=== PATIENT | female | born 1960 | race Caucasian/White ===

== ENCOUNTER 2020-01-10 11:22 | Observation (INO) | payer BC, SELFPAY ==
[2020-01-10] VITALS (20 sets, daily range): BP systolic 103–126; BP diastolic 34–58; PULSE 59–674; RESP 14–20; TEMP 36.3–37.1; O2SAT 96–100; BMI 31.6
[2020-01-10 11:50] LABS: Basophils Absolute Auto 0.1 K/mm3 (0.0-0.1); Eosinophils Absolute Auto 0.5 K/mm3 (0-0.3); Eosinophils Percent Auto 4.6 % (0-4.4); Immature Granulocyte Absolute 0.04 K/mm3 (0.00-0.031); Immature Granulocyte Percent A 0.4 % (0-0.5); Immature Platelet Fraction Pct 4.3 % (0.9-11.2); Lymphocytes Absolute Auto 1.07 K/mm3 (0.9-3.2); Mean Corpuscular HGB Conc 24.9 g/dl (32-36); Mean Corpuscular Hemoglobin 15.3 pg (26-34); Mean Corpuscular Volume 61.7 fl (80-100); Monocytes Absolute Auto 0.8 K/mm3 (0.1-0.6); Monocytes Percent Auto 7.9 % (2.6-8.5); Neutrophils Absolute Auto 7.3 K/mm3 (1.3-6.7); Neutrophils Percent Auto 75.1 % (45.5-73.1); Platelet Count Result 202 k/mm3 (150-375); Red Blood Count 3.26 M/mm3 (4.2-5.4); Red Cell Distribution Width 20.3 % (11.5-14.5); White Blood Count 9.8 K/mm3 (4.5-10.0)
--- NOTE | 2020-01-10 11:53 | ED.RECABL ---
HPI - Recheck/Abnormal Lab/Rx General Chief Complaint: Recheck/Abnormal Lab/Rx Stated Complaint: they sent me here for a blood transfusion Time Seen by Provider: 01/10/20 11:28 Source: patient Mode of arrival: ambulatory Limitations: no limitations History of Present Illness HPI narrative: Patient presents with chief complaint of being sent to the emergency department for blood transfusion by her primary care Dr. Dela Cruz. Patient reports approximately 7 months ago she was hospitalized for anemia, had upper and lower scopes performed and a source of bleeding was not found. Patient states she was told that she has cirrhosis of the liver and so she has been referred to a hand candle molder at [facility]. Patient denies feeling weak, dizzy, dyspneic, febrile, lethargic or having any other symptoms. Patient states that she had lab work done at [facility] yesterday for her upcoming hematology appointment and was called today and told to come directly to the emergency department for blood transfusion. Patient reports her past medical history includes cirrhosis of liver, hypertension, diabetes, pruritus which caused wounds on her legs. Related Data Home Medications Medication Instructions Recorded Confirmed albuterol sulfate [ProAir HFA] INHALATION 01/10/20 budesonide-formoterol [Symbicort] INHALATION 01/10/20 furosemide 01/10/20 gabapentin 01/10/20 insulin NPH and regular human SUBCUT 01/10/20 [Humulin 70/30 U-100 Insulin] insulin glargine [Lantus Solostar unit SUBCUT 01/10/20 U-100 Insulin] metformin mg 01/10/20 sertraline mg 01/10/20 Allergies Allergy/AdvReac Type Severity Reaction Status Date / Time No Known Allergies Allergy Unknown Unverified 06/15/19 10:02 Review of Systems Review of Systems: Narrative: CONSTITUTIONAL: Denies fever, chills, or sweats. EYES: Denies visual changes, redness, or discharge. ENT: Denies rhinorrhea, congestion, sore throat, or otalgia. CARDIOVASCULAR: Denies chest pain, palpitations, or edema. RESPIRATORY: Denies cough or dyspnea. GASTROINTESTINAL: Denies abdominal pain, nausea, vomiting, or diarrhea. GENITOURINARY: Denies dysuria or hematuria. SKIN: Denies rash or itching. MUSCULOSKELETAL: Denies back pain, joint pain, or myalgia. NEUROLOGIC: Denies headache, numbness, dizziness, or weakness. PSYCHIATRIC: Denies anxiety or depression. FORMERLY [facility] Past Medical History Medical History (Updated 01/10/20 @ 13:04 by Adi Hughes PA-C) Cirrhosis of liver Diabetes Hypertension Family History Family History (Updated 02/18/12 @ 16:41 by DOCTOR UNKNOWN) Other Diabetes mellitus Family history of cardiovascular disease Social History Social History Smoking status: Never smoker Alcohol intake: never Exam Narrative: Exam Narrative: GENERAL: Well-appearing, well-nourished, and in no acute distress. Smiling and talking with staff. HEAD: Normocephalic, atraumatic. EYES: PERRLA and EOMI. ENT: Nares clear, no rhinorrhea or epistaxis. Mucous membranes moist. Oropharynx without tonsillar hypertrophy exudate or other lesions. Bilateral TMs pearly min nonbulging CHEST: Clear to auscultation. No respiratory distress. No wheezes rales or rhonchi HEART: Regular rate and rhythm. murmur heard. ABDOMEN: Soft, nontender, nondistended, normal active bowel sounds. EXTREMITIES: Normal range of motion. Excoriations and wounds in various stages of healing to lower legs. No purulent drainage noted. SKIN: Warm, dry, no rash. NEURO: No focal deficits. Alert and oriented x3. PSYCH: Normal mood and affect. Course Vital Signs Vital signs: Vital Signs Temperature 98.6 F 01/10/20 11:33 Pulse Rate 72 01/10/20 11:33 Respiratory Rate 18 01/10/20 11:33 Blood Pressure 126/51 L 01/10/20 11:33 Pulse Oximetry 100 01/10/20 11:33 Temperature 98.6 F 01/10/20 11:33 Pulse Rate 70 01/10/20 12:07 Respiratory Rate 18 01/10/20 11:33 Blood Pressure 110/48 L 01/10/20 12:07 Puls
[2020-01-10 11:59] LABS: Hematocrit 20.1 % (37.0-47.0)
[2020-01-10 12:00] LABS: Platelet Estimate Adequate (Adequate)
--- NOTE | 2020-01-10 12:00 | ECG_ITS ---
Measurements Intervals [place] Rate: 72 P: 19 AR: 148 QRS: 12 QRSD: 137 T: 37 QT: 437 QTc: 480 Interpretive Statements SINUS RHYTHM WITH MARKED SINUS ARRHYTHMIA RIGHT BUNDLE BRANCH BLOCK BASELINE ARTIFACT- V1 ABNORMAL ECG Electronically Signed On 01-10-2020 12:07:51 CDT by Sang Houser D.O.
[2020-01-10 12:01] LABS: Hypochromasia 2+ (NORMAL); Microcytosis 1+ (NORMAL)
[2020-01-10 12:05] LABS: Alanine Aminotransferase 12 U/L (4-35); Alkaline Phosphatase 140 U/L (38-126); Aspartate Amino Transferase 27 U/L (14-36); Bilirubin,Total 0.8 mg/dL (0.2-1.3); Blood Urea Nitrogen 55 mg/dL (7-17); Calcium 8.8 mg/dL (8.4-10.2); Carbon Dioxide 21 mmol/L (22-30); Chloride 101 mmol/L (98-107); Estimated CRCL calculation 36 ml/min; Estimated Glomerular Filt Rate 35; Glucose 421 mg/dL (65-105); Potassium 5.9 mmol/L (3.4-5.0); Sodium 135 mmol/L (137-145)
[2020-01-10] MEDS: TUBING, BLOOD SET 1 EACH XX (13:11)
[2020-01-10] MEDS: SODIUM CHLORIDE 0.9% IV 250 ML 30 ML IV CONT (13:11)
[2020-01-10 14:38] LABS: Glucose Point of Care 426 (65-105)
--- NOTE | 2020-01-10 16:45 | PM.IMHP ---
H&P: HPI History of Present Illness Chief complaint: ?I need a blood transfusion.? Narrative: Samira Romo is a 59-year-old female with history of anemia requiring blood transfusion, insulin-dependent diabetes, peripheral neuropathy, hypertension, and cirrhosis who presented to the emergency department earlier this morning from home reporting that ?I need a blood transfusion.? The patient is known to the hospitalist service and myself as I admitted her to the hospital June 15, 2019 with profound anemia. Upper and lower endoscopies per Dr. Lehman showed no obvious abnormalities and a few small diverticuli and uncomplicated internal hemorrhoids, respectively. She received blood transfusions at that time, and was discharged on oral iron. She was told she could quit taking her iron not long thereafter, reportedly because her levels were within normal limits. During that admission, she was also found to have cirrhosis and has an upcoming appointment with a production operations manager in [place]. Yesterday, she had lab work done in anticipation of that appointment and this morning she received a phone call directing her to the emergency department as she needed a blood transfusion. Hemoglobin and hematocrit were 5.0 in 20.1 respectively. She has since received 2 units of packed red blood cells with a hemoglobin and hematocrit now of 7.1 and 25.7. The patient was surprised that she was not anemic, and says that she has not really had symptoms of such. She admits that she is quite sedentary, but goes on to say that is likely due to stress altering in place. She denies shortness of breath, palpitations, lightheadedness/dizziness, epistaxis, hematemesis, hemoptysis, melena, hematochezia, and hematuria. Review of Systems Review of Systems: Narrative: Twelve systems were reviewed with pertinent positives and negatives as per HPI. No fever, chills, or sweats. She denies headache. No recent cold or flu symptoms. No cough or shortness of breath. She denies sick contacts. She admits that her glucose is poorly controlled, with Accu-Cheks typically ranging between 350 and over 500. She cannot afford her insulin and has been purchasing [id number] 70/30 from [employer] and has been taking 80 units b.i.d.. She denies blurry vision. She tells me that she is always thirsty and that is unchanged. Patient is noted to have open wounds and excoriations on her upper back as well as her extremities, she tells me that she suffers from significant pruritus which she blames on her hyperglycemia. Except as documented, all other systems were reviewed and are negative. FOR[facility]LY [facility] Past Medical History Medical History (Updated 01/10/20 @ 20:53 by Ledy Martin PA-C) Chronic anemia With history of blood transfusion. Cirrhosis of liver Diabetic peripheral neuropathy Diastolic dysfunction Echocardiogram in May 2019 showed preserved left ventricular systolic function with ejection fraction of 74% and grade 2 diastolic dysfunction as well as mild left ventricular hypertrophy with a minimal degree of LVOT obstruction, mild right ventricular enlargement with mild hypokinesis and moderate pulmonary hypertension with a peak RVSP of 53 millimeters of mercury. Hypertension Insulin dependent type 2 diabetes mellitus Hemoglobin A1c was 9.2% in May 2019. Surgical History Surgical History (Updated 01/10/20 @ 20:49 by Ledy Martin PA-C) History of foot surgery Removal of bone spurs from both heels. Family History Family History Sibling Diabetes mellitus Schizophrenia Bipolar disorder Grandparent Diabetes mellitus Social History Social History (Updated 01/10/20 @ 20:50 by Ledy Martin PA-C) Social History: The patient is and lives with her in [place]. She designates her , Grant, as her surrogate decision maker and she wishes to be a full code. She is a lifelong nonsmok
[2020-01-10 17:12] LABS: Glucose Point of Care 391 (65-105)
--- NOTE | 2020-01-10 18:08 | ADMGEN ---
This patient, Samira Romo, was admitted to IMU Room 200-01 on 01-10-2020 at 1420. Patient/family oriented to hospital policies and general routines including ID bracelet, bed and alarms, visiting hours, pain management, procedures, bathroom and other care routines, personal items, smoking policy, room service/diet, and visiting hours. Valuables list has been completed. Information on how to activate the Rapid Response Team has been discussed. Patient/Family are encouraged to report perceived risks to care and to ask questions if they do not understand what they are told or what they should do.
[2020-01-10 20:15] LABS: Glucose Point of Care 432 (65-105)
[2020-01-10 20:25] LABS: Hematocrit 25.7 % (37.0-47.0); Hemoglobin 7.1 g/dL (12.0-15.0)
[2020-01-10] MEDS: INSULIN ASPART (*BKC) 100 UNITS/ML 8 UNITS SUB-Q (21:22)
[2020-01-10] MEDS: MONTELUKAST SODIUM 10 MG TABLET PO (21:34)
[2020-01-10] MEDS: GABAPENTIN 400 MG CAPSULE PO (21:34)
[2020-01-10 21:51] LABS: Hemoglobin A1C 10.1 % (<5.7)
[2020-01-10 21:54] LABS: Blood Urea Nitrogen 51 mg/dL (7-17); Carbon Dioxide 24 mmol/L (22-30); Chloride 98 mmol/L (98-107); Estimated CRCL calculation 36 ml/min; Estimated Glomerular Filt Rate 35; Glucose 454 mg/dL (65-105); Potassium 5.2 mmol/L (3.4-5.0); Sodium 134 mmol/L (137-145)
[2020-01-10 23:34] LABS: Glucose Point of Care 357 (65-105)
[2020-01-11] VITALS (13 sets, daily range): BP systolic 95–116; BP diastolic 41–92; PULSE 61–73; RESP 12–18; TEMP 36.2–36.7; O2SAT 93–100
[2020-01-11] MEDS: INSULIN HUMAN ISOPHAN/REGULAR 70/30 (*BKC) 100 UNITS/ML 70 UNITS SUB-Q ×3 (00:36→17:07)
[2020-01-11 04:24] LABS: Glucose Point of Care 227 (65-105)
[2020-01-11 05:23] LABS: Alanine Aminotransferase 10 U/L (4-35); Albumin Level 3.6 g/dL (3.5-5.1); Alkaline Phosphatase 109 U/L (38-126); Aspartate Amino Transferase 22 U/L (14-36); Blood Urea Nitrogen 53 mg/dL (7-17); Calcium 8.6 mg/dL (8.4-10.2); Carbon Dioxide 23 mmol/L (22-30); Chloride 103 mmol/L (98-107); Estimated CRCL calculation 39 ml/min; Estimated Glomerular Filt Rate 38; Glucose 221 mg/dL (65-105); Phosphorus 4.7 mg/dL (2.5-4.5); Potassium 4.8 mmol/L (3.4-5.0); Sodium 137 mmol/L (137-145)
[2020-01-11 06:44] LABS: Basophils Absolute Auto 0.1 K/mm3 (0.0-0.1); Basophils Percent Auto 1.3 % (0.2-1.2); Eosinophils Absolute Auto 0.6 K/mm3 (0-0.3); Eosinophils Percent Auto 6.5 % (0-4.4); Hematocrit 24.5 % (37.0-47.0); Immature Granulocyte Absolute 0.03 K/mm3 (0.00-0.031); Immature Granulocyte Percent A 0.4 % (0-0.5); Mean Corpuscular HGB Conc 27.8 g/dl (32-36); Mean Corpuscular Hemoglobin 18.4 pg (26-34); Mean Corpuscular Volume 66.4 fl (80-100); Mean Platelet Volume 10.5 fl (7.4-10.4); Monocytes Absolute Auto 0.8 K/mm3 (0.1-0.6); Monocytes Percent Auto 9.8 % (2.6-8.5); Neutrophils Absolute Auto 5.3 K/mm3 (1.3-6.7); Platelet Count Result 161 k/mm3 (150-375); Red Blood Count 3.69 M/mm3 (4.2-5.4); Red Cell Distribution Width 24.4 % (11.5-14.5); White Blood Count 8.4 K/mm3 (4.5-10.0)
[2020-01-11 07:25] LABS: Hemoglobin 6.8 g/dL (12.0-15.0)
[2020-01-11 07:26] LABS: Hypochromasia 2+ (NORMAL); Platelet Estimate Adequate (Adequate); Target Cells 1+ (NORMAL)
[2020-01-11 08:16] LABS: Glucose Point of Care 137 (65-105)
[2020-01-11] MEDS: nadoloL 10 MG TABLET PO (08:40)
[2020-01-11] MEDS: FUROSEMIDE 40 MG TABLET PO (08:40)
[2020-01-11] MEDS: SERTRALINE HCL 50 MG TABLET PO (08:40)
[2020-01-11] MEDS: GABAPENTIN 400 MG CAPSULE PO ×3 (08:40→16:58)
--- NOTE | 2020-01-11 10:48 | PM.IMPN ---
Progress Note: A&P Assessment and Plan (1) Profound anemia: Qualifiers: Anemia type: unspecified type Qualified Code(s): D64.9 - Anemia, unspecified Code(s): D64.9 - Anemia, unspecified Status: Acute Assessment and Plan: Upper and lower endoscopies in May 2019 with no acute bleeding. Hemoglobin found to be 5.9 in the ER yesterday. Received 2 units PRBC with hemoglobin 7.1. Hemoglobin down to 6.8 again this morning. Will transfuse additional 1 unit PRBC then recheck hemoglobin and hematocrit. Telemetry reviewed on 01/11/2020 with current sinus rhythm. Will transfer to medical floor as stable. Possible discharge tomorrow as long as hemoglobin remains stable. (2) Acute kidney injury: Code(s): N17.9 - Acute kidney failure, unspecified Status: Acute Assessment and Plan: Likely multifactorial in etiology, including hypoperfusion from hypovolemia and relative hypotension. Creatinine 1.40 today. Home spironolactone on hold but will continue home Lasix due to cirrhosis issues. Will continue to monitor. (3) Hyperkalemia: Code(s): E87.5 - Hyperkalemia Status: Acute Assessment and Plan: Potassium 5.9 on admission but down to 4.8 today. Likely result of increased creatinine. Spironolactone on hold as noted. Will continue to monitor. (4) Insulin dependent type 2 diabetes mellitus: Code(s): E11.9 - Type 2 diabetes mellitus without complications; Z79.4 - dye range feeder (current) use of insulin Status: Acute Assessment and Plan: Poorly controlled at home with hemoglobin A1c 10.1. Uses Humulin 70/30 at home which we will continue here. Glucose reviewed on 01/11/2020 with level 137 this morning with reduced dose of Humulin given this a.m.. Will continue to monitor. May need to adjust Humulin 70/30 dosing. Sliding scale insulin available as needed. Will monitor. (5) Hypertension: Qualifiers: Hypertension type: essential hypertension Qualified Code(s): I10 - Essential (primary) hypertension Code(s): I10 - Essential (primary) hypertension Status: Acute Assessment and Plan: Blood pressure reviewed on 01/11/2020 with low normal but stable readings. Continue to monitor with nadolol and Lasix still in place. (6) Diastolic dysfunction: Code(s): I51.89 - Other ill-defined heart diseases Status: Acute Assessment and Plan: No exacerbation. Lasix remains in place as noted. (7) Cirrhosis of liver: Qualifiers: Hepatic cirrhosis type: unspecified hepatic cirrhosis Ascites presence: unspecified Qualified Code(s): K74.60 - Unspecified cirrhosis of liver Code(s): K74.60 - Unspecified cirrhosis of liver Status: Acute Assessment and Plan: Known disease. Does follow with sports specialist in [place]. Continue nadolol and Lasix with spironolactone on hold as noted above. Will need to follow-up as scheduled as an outpatient. (8) DVT prophylaxis: Code(s): Z29.9 - Encounter for prophylactic measures, unspecified Status: Acute Assessment and Plan: SCDs. Time Spent With Patient Time with patient: 15 - 25 minutes Subjective Date/time seen: 01/11/20 10:48 Interval history: Date of Service: 01/11/2020. Admitted with profound anemia and acute kidney injury. Patient feeling better today. Slept well. No headache or dizziness. No chest pain. No shortness of breath. No abdominal pain. Known cirrhosis. Review of Systems Review of Systems: Narrative: Feeling better. Constitutional: Constitutional: Denies chills and Denies fever(s) ENT: Denies dysphagia Cardiovascular: Cardiovascular: Denies chest pain Respiratory: Respiratory: Denies dyspnea Gastrointestinal: Gastrointestinal: Denies abdominal pain, Denies nausea and Denies vomiting Genitourinary: Genitourinary: Reports no additional female genitourinary complaints Musculoskeletal: Musculo
[2020-01-11 12:12] LABS: Glucose Point of Care 259 (65-105)
[2020-01-11] MEDS: INSULIN ASPART (*BKC) 100 UNITS/ML SUB-Q ×2 (13:23→16:58)
--- NOTE | 2020-01-11 14:15 | PC.NURSE ---
Transfer received from IMU per bed. Report from MANOLO Linares.
--- NOTE | 2020-01-11 14:25 | PC.NURSE ---
This patient, Samira Romo, was transferred to [facility] on 01/11/20 at 1415. Personal belongings sent with patient. Belongings list checked and signed with receiving. Report given to MANOLO Hamilton. Appropriate documentation sent with patient.
[2020-01-11 16:46] LABS: Glucose Point of Care 259 (65-105)
[2020-01-11 18:37] LABS: Hematocrit 28.8 % (37.0-47.0); Hemoglobin 8.3 g/dL (12.0-15.0)
[2020-01-11] MEDS: MONTELUKAST SODIUM 10 MG TABLET PO (22:07)
[2020-01-11] MEDS: INSULIN ASPART (*BKC) 100 UNITS/ML 6 UNITS SUB-Q (22:46)
[2020-01-11 22:57] LABS: Glucose Point of Care 313 (65-105)
[2020-01-12 00:52] LABS: Glucose Point of Care 210 (65-105)
[2020-01-12 05:54] LABS: Blood Urea Nitrogen 54 mg/dL (7-17); Calcium 8.7 mg/dL (8.4-10.2); Carbon Dioxide 23 mmol/L (22-30); Chloride 104 mmol/L (98-107); Estimated CRCL calculation 39 ml/min; Estimated Glomerular Filt Rate 38; Glucose 113 mg/dL (65-105); Hematocrit 27.7 % (37.0-47.0); Hemoglobin 7.8 g/dL (12.0-15.0); Mean Corpuscular HGB Conc 28.2 g/dl (32-36); Mean Corpuscular Hemoglobin 19.3 pg (26-34); Mean Corpuscular Volume 68.4 fl (80-100); Platelet Count Result 142 k/mm3 (150-375); Potassium 4.6 mmol/L (3.4-5.0); Red Blood Count 4.05 M/mm3 (4.2-5.4); Sodium 138 mmol/L (137-145)
[2020-01-12 06:00] VITALS: BP 105/57; PULSE 67; RESP 16; TEMP 36.5; O2SAT 95
[2020-01-12 07:53] LABS: Glucose Point of Care 116 (65-105)
[2020-01-12] MEDS: GABAPENTIN 400 MG CAPSULE PO ×2 (08:21→13:09)
[2020-01-12] MEDS: SERTRALINE HCL 50 MG TABLET PO (08:22)
[2020-01-12] MEDS: FUROSEMIDE 40 MG TABLET PO (08:22)
[2020-01-12] MEDS: nadoloL 10 MG TABLET PO (08:22)
[2020-01-12] MEDS: INSULIN HUMAN ISOPHAN/REGULAR 70/30 (*BKC) 100 UNITS/ML 70 UNITS SUB-Q (08:23)
[2020-01-12 11:39] LABS: Glucose Point of Care 184 (65-105)
[2020-01-12 14:00] VITALS: BP 107/58; PULSE 69; RESP 18; TEMP 37; O2SAT 97
--- NOTE | 2020-01-12 14:23 | PM.IMPN ---
Progress Note: A&P Assessment and Plan (1) Profound anemia: Qualifiers: Anemia type: unspecified type Qualified Code(s): D64.9 - Anemia, unspecified Code(s): D64.9 - Anemia, unspecified Status: Acute Assessment and Plan: Upper and lower endoscopies in May 2019 with no acute bleeding. Hemoglobin found to be 5.9 in the ER yesterday. Received 2 units PRBC with hemoglobin 7.1. Hemoglobin down to 6.8 on 01/11/2020 with additional 1 unit PRBC given. Hemoglobin 8.3 last evening and 7.8 this morning. Patient is asymptomatic. Will have her restart iron orally. Discharge today with plan to recheck hemoglobin next Thursday, January 16, 2020. (2) Acute kidney injury: Code(s): N17.9 - Acute kidney failure, unspecified Status: Acute Assessment and Plan: Likely multifactorial in etiology, including hypoperfusion from hypovolemia and relative hypotension. Creatinine stable at 1.40 again today. Spironolactone remains on hold. Continue Lasix. Will need to follow as outpatient. (3) Hyperkalemia: Code(s): E87.5 - Hyperkalemia Status: Acute Assessment and Plan: Potassium 5.9 on admission but stable at 4.6 today. Spironolactone remains on hold. Will need to follow as outpatient. (4) Insulin dependent type 2 diabetes mellitus: Code(s): E11.9 - Type 2 diabetes mellitus without complications; Z79.4 - moth exterminator (current) use of insulin Status: Acute Assessment and Plan: Poorly controlled at home with hemoglobin A1c 10.1. Uses Humulin 70/30 at home which we will continue here. Glucose reviewed on 01/12/2020 and stable on current dose of Humulin 70/30. Follow as outpatient. (5) Hypertension: Qualifiers: Hypertension type: essential hypertension Qualified Code(s): I10 - Essential (primary) hypertension Code(s): I10 - Essential (primary) hypertension Status: Acute Assessment and Plan: Blood pressure reviewed on 01/12/2020 and stable. Continue nadolol and Lasix. (6) Diastolic dysfunction: Code(s): I51.89 - Other ill-defined heart diseases Status: Acute Assessment and Plan: No exacerbation. Stable. Lasix remains in place as noted. (7) Cirrhosis of liver: Qualifiers: Hepatic cirrhosis type: unspecified hepatic cirrhosis Ascites presence: unspecified Qualified Code(s): K74.60 - Unspecified cirrhosis of liver Code(s): K74.60 - Unspecified cirrhosis of liver Status: Acute Assessment and Plan: Known disease. Does follow with mobile architect in [place]. Continue nadolol and Lasix with spironolactone on hold as noted above. Will need to follow-up as scheduled as an outpatient. (8) DVT prophylaxis: Code(s): Z29.9 - Encounter for prophylactic measures, unspecified Status: Acute Assessment and Plan: SCDs. Time Spent With Patient Time with patient: 15 - 25 minutes Subjective Date/time seen: 01/12/20 14:23 Interval history: Date of Service: 01/12/2020. Admitted with profound anemia and acute kidney injury. Known cirrhosis. No problems overnight. Feels good this morning. No headaches or dizziness. No chest pain. No shortness of breath. No abdominal pain, nausea or vomiting. Review of Systems Review of Systems: Narrative: Feeling better. Constitutional: Constitutional: Denies chills and Denies fever(s) ENT: Denies dysphagia Cardiovascular: Cardiovascular: Denies chest pain Respiratory: Respiratory: Denies cough and Denies dyspnea Gastrointestinal: Gastrointestinal: Denies abdominal pain, Denies dysphagia, Denies nausea and Denies vomiting Genitourinary: Genitourinary: Reports no additional female genitourinary complaints Musculoskeletal: Musculoskeletal: Reports no additional musculoskeletal complaints Integumentary/Breasts: Skin/Breast: Reports wounds (Scattered on body) Neurologic: Denies headache(s) Psychiatric: P
--- NOTE | 2020-01-12 17:55 | PM.DS ---
DS: Diagnosis Admitting Diagnosis Admitting Diagnosis: Acute kidney failure, unspecified Discharge Diagnosis (1) Profound anemia: Qualifiers: Anemia type: unspecified type Qualified Code(s): D64.9 - Anemia, unspecified Code(s): D64.9 - Anemia, unspecified Status: Acute (2) Acute kidney injury: Code(s): N17.9 - Acute kidney failure, unspecified Status: Acute (3) Hyperkalemia: Code(s): E87.5 - Hyperkalemia Status: Acute (4) Insulin dependent type 2 diabetes mellitus: Code(s): E11.9 - Type 2 diabetes mellitus without complications; Z79.4 - ferry terminal supervisor (current) use of insulin Status: Acute (5) Hypertension: Qualifiers: Hypertension type: essential hypertension Qualified Code(s): I10 - Essential (primary) hypertension Code(s): I10 - Essential (primary) hypertension Status: Acute (6) Diastolic dysfunction: Code(s): I51.89 - Other ill-defined heart diseases Status: Acute (7) Cirrhosis of liver: Qualifiers: Ascites presence: unspecified Hepatic cirrhosis type: unspecified hepatic cirrhosis Qualified Code(s): K74.60 - Unspecified cirrhosis of liver Code(s): K74.60 - Unspecified cirrhosis of liver Status: Acute DS: Summary Hospital Course Reason for hospitalization: I need a blood transfusion . Hospital Course: Date of Service of Discharge: January 12, 2020. History of Present Illness: Patient is a 59-year-old woman with known history of anemia requiring blood transfusions, cirrhosis, insulin-requiring diabetes mellitus, peripheral neuropathy and hypertension who presented emergency department from home reporting need for blood transfusion. Patient did have upper lower endoscopies done in May 2019 due to profound anemia at that time with no obvious abnormalities and a few small diverticuli an uncomplicated internal hemorrhoids seen. She received blood transfusions at that time it was discharged on oral iron. She reports having quit iron not long thereafter with levels normal. She was also found to have cirrhosis during her admission in 2018 and does have an upcoming appointment with a fire sprinkler fitter in [place]. She did have lab work done in anticipation of that appointment and was called on the morning of presentation directing her to the emergency room as she needed a blood transfusion. Hemoglobin was 5.0 with hematocrit 20.1. She was admitted for blood transfusion as result. Patient with no shortness of breath, palpitations, dizziness or chest pain. No recent epistaxis, hematemesis, hemoptysis, melena or hematuria. Course in Hospital: Patient was initially admitted to the IMU where she was monitored. She was transfused 2 units PRBC with hemoglobin up to 7.1 and hematocrit 25.7 subsequently. She was then monitored overnight with hemoglobin dropping to 6.8 on the following day and 1 further unit PRBC transfused. She remained asymptomatic during this time. She was on room air through her entire stay. She was able to move from IMU to the medical floor on 01/11/2020 remained there for the duration of her stay. Hemoglobin and hematocrit were continued to be monitored. Hemoglobin was stable at 7.8 on the morning of discharge. Discussion was held with patient regarding restarting iron orally as an outpatient with continued monitoring of blood counts. She did have an initial acute kidney injury which resolved with transfusion. Home Lasix for cirrhosis was continued but spironolactone was held as she additionally had hyperkalemia. Hyperkalemia resolved with potassium 4.6 by discharge. Blood pressure remained stable throughout her stay on her Lasix and nadolol. Glucose was also monitored with patient resumed on her home Humulin 70/30. Hemoglobin A1c known to be elevated at 10.1. Glucose was stable at time of discharge with patient aware she would need to continue to monitor. With no other issues, patient
== END 2020-01-12 15:44 | disposition home or self-care (01) ==
LOC: ANHED 13:04 → ANHIMU 20:58 → ANH2MED 01-12 14:40 → ANHIMU 01-16 11:58
PROVIDERS: Internal Medicine; Physician Assistant; Admitting Provider Internal Medicine; Emergency Provider Emergency Medicine; PCP Family Medicine Adolescent Medicine; Visit Provider Hospitalist
DX: D64.9 Anemia, unspecified (principal); N17.9 Acute kidney failure, unspecified; E87.5 Hyperkalemia; E11.42 Type 2 diabetes mellitus with diabetic polyneuropathy; I11.9 Hypertensive heart disease without heart failure; K74.60 Unspecified cirrhosis of liver; Z79.4 Long term (current) use of insulin; Z79.899 Other long term (current) drug therapy
CPT/HCPCS: 36415; 36430; 80048; 80053; 83036; 83735; 84100; 85014; 85018; 85025; 85027; 85055; 86850; 86900; 86901; 86920; 93005; 94640; 96360; 96361; 99285; A9270; G0378; J1815; J7050; P9016

== ENCOUNTER 2020-01-25 09:51 | Outpatient (CLI) | payer BC, SELFPAY ==
--- NOTE | 2020-01-25 11:30 | NEURO_ITS ---
Patient Number: [id number] Impression: # Complains of numbness of lower extremities. # Neuropathy involving posterior tibial nerve more than peroneal nerve with low amplitude. # Needle/EMG exam not done due to extreme edema and oozing fluid in legs. Nerve Conduction Studies Anti Sensory Summary Table Stim Site NR Peak (ms) P-T Amp (?V) Site1 Site2 Delta-P (ms) Dist (cm) Ant (m/s) Left Sup Fibular Anti Sensory (Ant Lat Mall) NO RESPONSE 14 cm NR 14 cm Ant Lat Mall 16.0 Right Sup Fibular Anti Sensory (Ant Lat Mall) 14 cm 3.0 12.5 14 cm Ant Lat Mall 3.0 14.0 47 Left Sural Anti Sensory (Lat Mall) Calf 4.2 10.4 Calf Lat Mall 4.2 16.0 38 Right Sural Anti Sensory (Lat Mall) Calf 4.6 7.6 Calf Lat Mall 4.6 16.0 35 Motor Summary Table Stim Site NR Onset (ms) O-P Amp (mV) Site1 Site2 Delta-0 (ms) Dist (cm) Ant (m/s) Left Peroneal Motor (Vastus Med) Ankle 4.3 0.5 Popit Ankle 9.4 38.0 40 Popit 13.7 0.1 Right Peroneal Motor (Vastus Med) Ankle 4.3 0.7 Popit Ankle 8.4 36.0 43 Popit 12.7 0.5 Left Tibial Motor (Abd Ramos Brev) Ankle 4.6 0.7 Knee Ankle 10.5 41.0 39 Knee 15.1 0.1 Right Tibial Motor (Abd Ramos Brev) Ankle 4.6 1.1 Knee Ankle 9.9 39.0 39 Knee 14.5 0.9 F Wave Studies NR F-Lat (ms) L-R F-Lat (ms) Left Peroneal (Mrkrs) (EDB) 51.11 1.40 Right Peroneal (Mrkrs) (EDB) 49.71 1.40 Left Tibial (Mrkrs) (Abd Hallucis) 54.48 0.58 Right Tibial (Mrkrs) (Abd Hallucis) 55.06 0.58 MTDD
== END 2020-01-25 09:52 | disposition home or self-care (01) ==
PROVIDERS: PCP Family Medicine Adolescent Medicine; Visit Provider Family Medicine Adolescent Medicine
DX: G62.9 Polyneuropathy, unspecified (principal); R53.1 Weakness
CPT/HCPCS: 95910

== ENCOUNTER 2020-07-27 09:11 | Outpatient (NON) | payer BC, SELFPAY ==
[2020-07-28 01:31] LABS: SARS-CoV-2 RNA PCR Negative
== END 2020-07-27 09:12 ==
PROVIDERS: PCP Family Medicine Adolescent Medicine; Visit Provider Family Medicine Adolescent Medicine
DX: R05 Cough (principal); Z20.828 Contact with and (suspected) exposure to other viral communicable diseases; R43.9 Unspecified disturbances of smell and taste
CPT/HCPCS: 87635; C9803; U0003

== ENCOUNTER 2023-12-03 12:57 | Outpatient (CLI) | payer OTHER, SELFPAY ==
--- NOTE | ~2023-12-03 | US_ITS ---
EXAMINATION: US thyroid DATE: 12/03/2023 14:16 INDICATION: Dysphagia, unspecified. TECHNIQUE: Multiple ultrasound images of the thyroid were obtained. COMPARISON: None. FINDINGS: The right thyroid lobe measures 4.1 x 1.6 x 1.5 cm. The left thyroid lobe measures 3.9 x 1.3 x 1.5 c m. There is normal echotexture and echogenicity throughout the thyroid gland. No discrete nodules id entified. Normal vascular flow is present. IMPRESSION: 1. Normal thyroid. Reviewed, dictated and finalized at location A. IMPRESSION: 1. Normal thyroid.
== END 2023-12-03 12:58 | disposition home or self-care (01) ==
PROVIDERS: PCP Family Medicine Adolescent Medicine; Visit Provider Nurse Practitioner Family
DX: R13.10 Dysphagia, unspecified (principal)
CPT/HCPCS: 76536

== ENCOUNTER 2024-04-19 10:09 | Outpatient (CLI) | payer OTHER, SELFPAY ==
--- NOTE | ~2024-04-19 | CT_ITS ---
CT diagnostic chest wo con Ordering provider: Monique Arevalo PA-C History: 64 years Female with . J18.9 - Pneumonia, unspecified organism . Comparison: None. Technique: CT chest without IV contrast. Radiation reduction technique utilized. DLP is 493.2 mGy-cm. FINDINGS: VISUALIZED THORACIC INLET: Normal. MEDIASTINUM: Aorta/coronary arteries: Mild atheromatous disease. Heart/other: The heart is not enlarged. Lymph nodes: No mediastinal or hilar adenopathy. LUNGS: Atelectatic changes seen in the right lung base posteriorly and in the lingula No pulmonary no dules or masses. No infiltrates or effusions. No pneumothorax. VISUALIZED UPPER ABDOMEN: the visualized upper abdomen is normal. MUSCULOSKELETAL: Soft tissues: The superficial soft tissues are normal. Bones: Age appropriate degenerative changes of the spine. Kyphosis. IMPRESSION: 1. Atelectatic changes in the right lung bases with minimal atelectatic changes in the lingula. Pneu monia is is not excluded. 2. 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 Reviewed, dictated and finalized at location A. IMPRESSION: 1. Atelectatic changes in the right lung bases with minimal atelectatic change s in the lingula. Pneumonia is is not excluded. 2. 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
[2024-04-19 11:30] VITALS: PULSE 72; O2SAT 95
[2024-04-19 11:35] VITALS: PULSE 88; O2SAT 93
[2024-04-19 11:45] VITALS: PULSE 70; O2SAT 95
--- NOTE | 2024-04-19 12:03 | HOMEO2EVAL ---
Evaluation was performed at [facility] Home Oxygen Evaluation RC: Home Oxygen (O2) Evaluation Start: 04/19/24 12:01 Freq: Status: Active Protocol: RPE Activity Type Activity Date Activity User E-sign Co-sign Detail Recorded Client Recorded Date Recorded By Document 04/19/24 11:30 SERG [id number]_012 04/19/24 12:03 SERG Document 04/19/24 11:35 SERG [id number]_012 04/19/24 12:03 SERG Document 04/19/24 11:45 SERG [id number]_012 04/19/24 12:03 SERG 04/19/24 04/19/24 04/19/24 11:30 11:35 11:45 Home O2 Evaluation [Oxygen] -Test Phase Resting Exercise Resting -Oxygen Delivery Room Air Room Air Room Air [Pulse Oximetry] -Pulse Oximetry (90-100 %) 95 93 95 [Pulse Rate] -Pulse Rate (60-100 beats/min) 72 88 70 [Exercise] -Ambulation Distance (feet) 600 -Ambulation Distance (meters) 182.87 [Charges] -Evaluation Charges O2 Evaluation by Pulmonary
--- NOTE | 2024-04-19 12:03 | PCRCNOTE ---
FAXED HOME O2 EVAL TO OFFICE STAFF
--- NOTE | 2024-04-19 12:45 | WPDPFTINT ---
PFT Procedure Performed PFT Procedure Performed Spirometry with Pre/Post Bronchodilator Plethysmography (Lung Vol) Diffusing Cap (DLCO) Flow Vol Loop PFT Interpretation This is a pulmonary function test with pre and post-bronchodilator spirometry, plethysmography and diffusing capacity. The test was performed and results interpreted in accordance with the 2019 and 2005 ATS/ERS Task Force guidelines respectively using the Global Lung Function Initiative-2012 reference equations. Patient demonstrated good effort and cooperation. Reproducibility criteria were met. The quality of the pre bronchodilator spirometry maneuver was Grade A and post bronchodilator spirometry maneuver was Grade A. Findings: Spirometry: There is decreased maximal expiratory airflow at all lung volumes with concave expiratory flow tracing. The contour the inspiratory flow tracing is normal. The pre bronchodilator FVC is 2.37 L, 86% predicted. The pre bronchodilator FEV1 is 1.58 L, 73% predicted. The pre bronchodilator FEV1: FVC ratio 67%. The post bronchodilator FVC is 2.39 L, representing a 1% increase. The post bronchodilator FEV1 is 1.78 L, representing a 12% increase. The post bronchodilator FEV1: FVC ratio 74%. Plethysmography: The total lung capacity is 4.02 L, 85% predicted. The functional residual capacity is 2.68 L, 100% predicted. The residual volume is 1.57 L, 79% predicted. Diffusing capacity: The diffusing capacity unadjusted for hemoglobin and carboxyhemoglobin is 10.9, 54% predicted. The diffusing capacity adjusted for alveolar volume is 2.65, 60% predicted. Impression: There is a mild obstructive abnormality. There is significant improvement after inhaling a single dose of albuterol. The lung volumes are normal. The diffusing capacity unadjusted for hemoglobin and carboxyhemoglobin is moderately decreased and remains moderately decreased when adjusted for alveolar volume. There are no prior studies for comparison
== END 2024-04-19 10:10 | disposition home or self-care (01) ==
PROVIDERS: PCP Physician Assistant; Visit Provider Physician Assistant
DX: J18.9 Pneumonia, unspecified organism (principal); R13.10 Dysphagia, unspecified; J45.909 Unspecified asthma, uncomplicated; R09.02 Hypoxemia; J98.11 Atelectasis; R94.2 Abnormal results of pulmonary function studies
CPT/HCPCS: 71250; 94060; 94618; 94726; 94729

== ENCOUNTER 2024-05-05 13:57 | Outpatient (CLI) | payer OTHER, SELFPAY ==
--- NOTE | ~2024-05-05 | DEXA_ITS ---
Bone Density Report Name: EVY RAI Age: 64 Sex: Female Ethnicity: White Date of : 1960 Indication: postmenopausal; screening for osteoporosis; height loss; history of glucocorticoids; Referring Provider: SYLVIA LEONARD Study: Bone densitometry was performed. Exam Date: May 05, 2024 Accession number: [id number] Bone Density: Region BMD T-score Z-score Classification AP Spine(L1-L4) 1.235 1.7 3.5 Normal Femoral Neck (Left) 0.721 -1.2 0.4 Osteopenia Total Hip (Left) 0.903 -0.3 1.0 Normal Femoral Neck (Right) 0.715 -1.2 0.4 Osteopenia Total Hip (Right) 0.937 0.0 1.2 Normal Total Hip Mean 0.920 -0.2 1.1 Normal World Health Organization criteria for BMD impression classify patients as: Normal (T-score at or above -1.0), Osteopenia (T-score between -1.0 and -2.5), or Osteoporosis (T-score at or below -2.5). 10-year Fracture Risk(1): Major Osteoporotic Fracture 12% Hip Fracture 1.2% Reported Risk Factors: [place] (), Neck BMD=0.715, BMI=36.1, glucocorticoids (1) FRAX(R) Version 3.08. Fracture probability calculated for an untreated patient. Fracture probability may be lower if the patient has received treatment. Clinical Information Provided by Patient: Has taken Glucocorticoids Has used the following medications: Vitamin D, Calcium Patient maximum height was 64 Menopause Age: 43 No regular weight bearing exercise Drinks caffeinated beverages Onset of menses at age 9 Number of children 0 Missed period for more than 6 months in a row Impression: The patient has low bone mass, based on the Left Femoral Neck T-score. The patient has an estimated ten-year risk of hip fracture of 1.2% and an estimated ten-year risk of major fracture of 12%, based on the WHO FRAX algorithm. The patient has risk factors, including: history of glucocorticoid therapy. Discussion: BONE DENSITY IS LOW AT ONE OR MORE SKELETAL SITES. This patient's lowest T-score is low at one or more skeletal sites. It meets the World Health Organization's (WHO) criteria for ?low bone mass? (T-score between -1.0 and -2.5). The patient's 10-year risk of fracture as calculated by FRAX is less than the threshold where pharmacological therapy is recommended by the National Osteoporosis Foundation (NOF). However, all treatment decisions require clinical judgment and consideration of individual patient factors, including patient preferences, comorbidities, previous drug use, risk factors not captured in the FRAX model (e.g., frailty, falls, vitamin D deficiency, increased bone turnover, interval significant decline in bone density) and possible under or overestimation of fracture risk by FRAX. The patient should follow a healthful lifestyle (good nutrition with adequate calcium and vitamin D, and appro
== END 2024-05-05 13:58 | disposition home or self-care (01) ==
PROVIDERS: PCP Physician Assistant; Visit Provider Nurse Practitioner Family
DX: M85.89 Other specified disorders of bone density and structure, multiple sites (principal); Z78.0 Asymptomatic menopausal state; Z13.820 Encounter for screening for osteoporosis
CPT/HCPCS: 77080

== ENCOUNTER 2024-07-13 16:10 | Outpatient (CLI) | payer OTHER, SELFPAY ==
[2024-07-13 16:33] LABS: Hematocrit 27.6 % (37.0-47.0); Hemoglobin 7.7 g/dL (12.0-15.0); Mean Corpuscular HGB Conc 27.9 g/dl (32-36); Mean Corpuscular Hemoglobin 24.7 pg (26-34); Mean Corpuscular Volume 88.5 fl (80-100); Mean Platelet Volume 10.7 fl (7.4-10.4); Platelet Count Result 151 k/mm3 (150-375); Red Blood Count 3.12 M/mm3 (4.2-5.4); Red Cell Distribution Width 25.4 % (11.5-14.5)
[2024-07-13 16:49] LABS: Anion Gap 10 mmol/L (4-12); Blood Urea Nitrogen 102 mg/dL (7-17); Calcium 8.1 mg/dL (8.4-10.2); Carbon Dioxide 18 mmol/L (22-30); Chloride 107 mmol/L (98-107); Estimated Glomerular Filt Rate 7; Glucose 185 mg/dL (65-110); Potassium 5.6 mmol/L (3.4-5.0); Sodium 135 mmol/L (137-145)
== END 2024-07-13 16:11 | disposition home or self-care (01) ==
PROVIDERS: PCP Nurse Practitioner Family; Visit Provider Nurse Practitioner Family
DX: K29.70 Gastritis, unspecified, without bleeding (principal); D64.9 Anemia, unspecified; I12.9 Hypertensive chronic kidney disease with stage 1 through stage 4 chronic kidney disease, or unspecified chronic kidney disease; N18.30 Chronic kidney disease, stage 3 unspecified
CPT/HCPCS: 36415; 80048; 85027